=== PATIENT | male | born 2005 | race Caucasian/White ===

== ENCOUNTER 2024-02-09 03:29 | Emergency (ER) | payer SELFPAY ==
[~2024-02-09] VITALS: Ht 162.6 cm; Wt 60.0 kg
[2024-02-09 03:36] VITALS: TEMP 98.6; O2SAT 100
[2024-02-09] MEDS: SODIUM CHLORIDE 0.9% 1,000 ML IV ONE (04:04)
[2024-02-09 04:05] VITALS: BP 122/67; PULSE 87; RESP 19; O2SAT 99
[2024-02-09] MEDS: MORPHINE SULFATE 4 MG/ML INJ (FOR IV/IM USE) IV STA (04:16)
[2024-02-09] MEDS: ONDANSETRON HCL 4MG/2ML INJ IV STA (04:16)
[2024-02-09 05:10] LABS: CHLORIDE 107 mEq/L (98-107); POTASSIUM 3.8 mEq/L (3.5-5.1); SODIUM 141 mEq/L (136-145)
[2024-02-09 05:11] LABS: CARBON DIOXIDE 27 mEq/L (21-32)
[2024-02-09 05:12] LABS: CALCIUM 9.2 mg/dL (8.7-10.4)
[2024-02-09 05:16] LABS: GLUCOSE 117 mg/dL (70-105)
[2024-02-09 05:17] LABS: UREA NITROGEN BLOOD 16 mg/dL (9-23)
[2024-02-09 05:23] LABS: BASOPHILS % 0.1 % (0.0-2.0); EOSINOPHILS % 2.2 % (0.0-5.0); HEMATOCRIT. 42.1 % (42.0-52.0); HEMOGLOBIN. 13.9 g/dL (14.0-18.0); MEAN CORPUSCULAR HEMOGLOBIN 28.4 pg (28.0-32.0); MEAN CORPUSCULAR HGB CONC 32.9 g/dL (31.0-37.0); MEAN CORPUSCULAR VOLUME 86.4 fL (80.0-94.0); MEAN PLATELET VOLUME 7.9 fl (7.4-10.4); NEUTROPHILS % 65.7 % (40.0-76.0); PLATELET 282 x1000/uL (130-400); RED BLOOD CELL COUNT 4.88 mill/uL (4.7-6.1); RED CELL DISTRIBUTION WIDTH 13.9 % (11.6-14.6); TROPONIN I HIGH SENSITIVITY < 4 ng/L (3.0-53); WHITE BLOOD COUNT 8.6 x1000/uL (4.5-11.0)
== END 2024-02-09 04:36 | disposition short-term general hospital (02) ==
LOC: ER 04:27
DX: S29.9XXA Unspecified injury of thorax, initial encounter (principal); I95.9 Hypotension, unspecified; V43.52XA Car driver injured in collision with other type car in traffic accident, initial encounter; Y93.89 Activity, other specified; Y92.89 Other specified places as the place of occurrence of the external cause; Y99.8 Other external cause status
CPT/HCPCS: 80048; 85025; 86850; 86900; 86901; 84484; 36415; 71045; 93005; 96361; 96374; 96375; 99291; J2405; J2270; J7030; Z7610 ×2